=== PATIENT | male | born 1965 | race Caucasian/White ===

== ENCOUNTER 2017-10-12 01:13 | Emergency (ER) | payer OTHER ==
[~2017-10-12] VITALS: Ht 175.3 cm; Wt 72.6 kg
[2017-10-12 01:18] VITALS: BP 141/87
[2017-10-12] MEDS ORDERED: DOXYCYCLINE 10100 MG PO (01:28)
[2017-10-12] MEDS ORDERED: VITAMIN D3400 UNIT PO (01:29)
[2017-10-12] MEDS ORDERED: VITAMIN D22000 UNIT PO (01:29)
[2017-10-12] MEDS ORDERED: OMEGA-31000 M1 PO (01:29)
[2017-10-12] MEDS ORDERED: VITAMIN K240 MCG PO (01:30)
== END 2017-10-12 01:52 | disposition home or self-care (01) ==
LOC: ER 01:13
DX: S90.562A Insect bite (nonvenomous), left ankle, initial encounter (principal); L03.116 Cellulitis of left lower limb; W57.XXXA Bitten or stung by nonvenomous insect and other nonvenomous arthropods, initial encounter; Y92.89 Other specified places as the place of occurrence of the external cause; Y93.89 Activity, other specified; Y99.8 Other external cause status

== ENCOUNTER → 2018-07-15 | Outpatient (CLI) | payer OTHER ==
[~2018-07-15] MED LIST: DOXYCYCLINE 10100 MG PO; OMEGA-31000 M1 PO; VITAMIN D22000 UNIT PO; VITAMIN D3400 UNIT PO; VITAMIN K240 MCG PO
== END ==
LOC: CAT 11:52
DX: Z13.6 Encounter for screening for cardiovascular disorders (principal); I25.10 Atherosclerotic heart disease of native coronary artery without angina pectoris; E78.00 Pure hypercholesterolemia, unspecified